=== PATIENT | male | born 1945 | race Caucasian/White ===

== ENCOUNTER → 2023-04-18 12:18 | Outpatient (REF) | payer OTHER, SELFPAY ==
[2023-04-18 12:34] LABS: Hematocrit 39.8 % (39.0-52.0); Hemoglobin 13.3 g/dL (13.0-18.0); Mean Corp Hgb Conc. 33.4 g/dL (33.0-37.0); Mean Corpuscular Hgb 29.2 pg (27.0-31.0); Mean Corpuscular Volume 87.3 fL (80.0-94.0); Red Blood Cell Count 4.56 10^6/uL (4.70-6.10); Red Cell Dist. Width 14.1 % (11.5-14.5)
[2023-04-18 12:48] LABS: Depakane 112.9 ug/ml (50.0-120.0)
== END ==
LOC: OLABWHC 12:18
PROVIDERS: ATTENDING PHYSICIAN Internal Medicine
DX: I67.81 Acute cerebrovascular insufficiency (principal); I10 Essential (primary) hypertension; E03.9 Hypothyroidism, unspecified; F29 Unspecified psychosis not due to a substance or known physiological condition
CPT/HCPCS: 36415; 80164; 85027

== ENCOUNTER → 2023-04-19 11:39 | Outpatient (REF) | payer OTHER, MEDICARE, SELFPAY ==
[2023-04-19 12:18] LABS: Hematocrit 39.6 % (39.0-52.0); Hemoglobin 13.4 g/dL (13.0-18.0); Mean Corp Hgb Conc. 33.8 g/dL (33.0-37.0); Mean Corpuscular Hgb 29.1 pg (27.0-31.0); Mean Corpuscular Volume 85.9 fL (80.0-94.0); Mean Platelet Volume 10.1 fL (7.4-10.4); Platelet Count 136 10^3/uL (130-400); Red Blood Cell Count 4.61 10^6/uL (4.70-6.10); Red Cell Dist. Width 14.3 % (11.5-14.5); White Blood Cell Count 8.2 10^3/uL (4.8-10.8)
[2023-04-19 12:31] LABS: Depakane 112.5 ug/ml (50.0-120.0)
[2023-04-19 12:37] LABS: ALT (SGPT) 11 U/L (0-50); AST (SGOT) 23 U/L (17-59); Albumin 3.8 g/dl (3.5-5.0); Alkaline Phosphatase 48 U/L (38-126); Blood Urea Nitrogen 22 mg/dl (9-20); Calcium 9.2 mg/dl (8.4-10.2); Carbon Dioxide 23 mmol/L (22-30); Chloride 103 mmol/L (98-107); Glucose 80 mg/dl (70-99); Potassium 4.3 mmol/L (3.5-5.1); Total Bilirubin 0.8 mg/dl (0.2-1.3); Total Protein 6.9 g/dl (6.3-8.2); eGFR > 60.00
[2023-04-19 12:42] LABS: Sodium 136 mmol/L (135-145)
[2023-04-19 12:52] LABS: Free T4 1.52 ng/dl (0.78-2.19)
[2023-04-19 13:06] LABS: TSH 4.48 uIU/ml (0.47-4.68)
== END ==
LOC: OLABWHC 11:39
PROVIDERS: ATTENDING PHYSICIAN Family Medicine
DX: I67.81 Acute cerebrovascular insufficiency (principal); F31.10 Bipolar disorder, current episode manic without psychotic features, unspecified; G20.C Parkinsonism, unspecified; F84.0 Autistic disorder; I10 Essential (primary) hypertension; E03.9 Hypothyroidism, unspecified
CPT/HCPCS: 36415; 80053; 80164; 84439; 84443; 85027